=== PATIENT | male | born 1940 | race Two or more races ===

== ENCOUNTER 2017-11-04 10:37 | Outpatient (CLI) | payer MEDICARE, MEDICAID ==
[~2017-11-04] VITALS: Ht 172.7 cm; Wt 75.3 kg
[2017-11-04 10:48] VITALS: BP 133/59
[2017-11-04] MEDS ORDERED: no medication (10:51)
--- NOTE | 2017-11-04 16:35 | GI Initial Consult Note ---
History of Present Illness General Date patient seen: Nov 04, 2017 Time patient seen: 16:32 Referring physician: FATOU Reason for Consultation: SCREENING COLONOSCOPY Present Illness HPI 77 year old male referred by Dr. Washington presents today for routine screening colonoscopy. Has no associated GI symptoms. Denies any unintentional weight loss or changes in dietary habits. No signs of abuse or neglect. Patient is not fall risk. Home Meds Reported Medications [no medication ] No Conflict Check 11/04/17 Med list reviewed/reconciled: Yes Allergies: Coded Allergies: No Known Allergies (Unverified , 07/07/13) Patient History History Provided By: Patient, Medical Record [facility] Narrative [place] Past Surgical History: Cholecystectomy Pertinent Family History: none Social History: Denies: smoking, alcohol use, drug use, other Review of Systems All Other Systems: negative except mentioned in HPI Physical Exam Vital Signs Date Time Temp Pulse Resp B/P (MAP) Pulse Ox O2 Delivery O2 Flow Rate FiO2 11/04/17 10:48 97.6 50 16 133/59 97 97.6 Sp02 EP Interpretation: reviewed, normal General Appearance: well appearing, no apparent distress, alert Head: normocephalic EENT: PERRL/EOMI, normal ENT inspection Neck: supple Respiratory: normal breath sounds, no respiratory distress Cardiovascular: normal rate Gastrointestinal: normal inspection, non tender, soft, normal bowel sounds, non -distended Rectal: deferred Genitourinary: deferred Musculoskeletal: normal inspection, back normal Neurologic: normal inspection, alert, oriented x3, responsive Psychiatric: normal inspection, judgement/insight normal, memory normal Skin: normal inspection, normal color, no rash, warm/dry, palpation normal, well hydrated Lymphatic: normal inspection, no adenopathy GI: Plan Problems: (1) Hx of cholecystectomy (2) Colonoscopy planned Plan EGD/colonoscopy scheduled 11/10/17. - CLD & (Nulytely/Suprep/Movi-Prep) prep instructions given and acknowledged by patient. - NPO @ ID day prior procedure explained. Seen with Dr. John. Thank you for this patient referral. Sue Galindo N.P. Nov 04, 2017 16:35
== END 2017-11-04 11:12 | disposition home or self-care (01) ==
LOC: PAN 10:37
DX: Z12.11 Encounter for screening for malignant neoplasm of colon (principal); Z90.49 Acquired absence of other specified parts of digestive tract
CPT/HCPCS: 99201

== ENCOUNTER 2017-11-12 07:06 | Day surgery (SDC) | payer MEDICARE, MEDICAID ==
[~2017-11-12] VITALS: Ht 170.2 cm; Wt 70.0 kg
[2017-11-12] VITALS (9 sets, daily range): BP systolic 120–141; BP diastolic 53–73
--- NOTE | 2017-11-12 06:53 | Anethesia Preoperative Eval ---
Anesthesia Pre-op PMH/ROS General Date of Evaluation: Nov 12, 2017 Time of Evaluation: 06:51 Anesthesiologist: alec ASA Score: ASA 2 Mallampati Score Class I : Soft palate, uvula, fauces, pillars visible Class II: Soft palate, uvula, fauces visible Class III: Soft palate, base of uvula visible Class IV: Only hard plate visible Mallampati Classification: Class II Surgeon: dianne Diagnosis: abdominal pain Surgical Procedure: egd/colonoscopy Anesthesia History: none Social History: smoking - nonsmoker Family History: no anesthesia problems Allergies: Coded Allergies: No Known Allergies (Unverified , 07/07/13) Medications: see eMAR Past Medical History PSxH Narrative: cholecystectomy Anesthesia Pre-op Phys. Exam Physician Exam Constitutional: NAD Neurologic: CN 2-12 intact Cardiovascular: RRR Respiratory: CTA Gastrointestinal: S/NT/ND Airway Exam Mallampati Score: Class II MO: full Neck: supple TMD: 2fb ROM: full Teeth: intact Anesthesia Pre-op A/P Risk Assessment & Plan Assessment: asa2 Plan: mac Status Change Before Surgery: No Pre-Antibiotics Drug: BABAK Garcia Nov 12, 2017 06:53
[~2017-11-12 07:06] MED LIST: Atropine Inj 1mg/10ml Syr IV PRN; DiphenhydrAMINE 50mg/ml Inj IVP PRN; Midazolam 2mg/2ml Inj IVP PRN; fentaNYL 100 mcg/2 mL IV PRN; no medication
[2017-11-12] MEDS ORDERED: NKM (07:45)
--- NOTE | 2017-11-12 09:22 | Short Stay Surgery H&P ---
History of Present Illness History of Present Illness Chief Complaint see recent office note HPI Deysi Fong is a 77 year old male who was admitted on for Abdominal Pain Patient History Allergies: Coded Allergies: No Known Allergies (Unverified , 07/07/13) Medication History Scheduled No Known Medications* (NKM - No Known Medications*), 0 ., (Reported) Miscellaneous Medications [no medication ], (Reported) Physical Exam Vital Signs Last Vital Signs Date Time Temp Pulse Resp B/P (MAP) Pulse Ox O2 Delivery O2 Flow Rate FiO2 11/12/17 07:46 97.2 56 20 129/67 97 Room Air 97.2 Plan Attestation Are the patient's medical conditions optimized for surgery? SAMIRA ROBERTO Nov 12, 2017 09:22
--- NOTE | 2017-11-12 09:22 | Pre-Procedure Note/Attestation ---
Pre-Procedure Note/Attestation Complete Prior to Procedure Planned Procedure: not applicable Procedure Narrative: esophagogastroduodenoscopy and colonoscopy Indications for Procedure Pre-Operative Diagnosis: screening colon, GERD Attestation I attest that I discussed the nature of the procedure; its benefits; risks and complications; and alternatives (and the risks and benefits of such alternatives ), prior to the procedure, with the patient (or the patient's legal pharmaceutical service representative). I attest that, if there was a reasonable possibility of needing a blood transfusion, the patient (or the patient's legal pharmaceutical service representative) was given the [facility] standardized written summary, pursuant to the Benito Boody Blood Safety Act ([place] Health and Safety Code # 1645, as amended). I attest that I re-evaluated the patient just prior to the surgery and that there has been no change in the patient's H&P, except as documented below: SAMIRA ROBERTO Nov 12, 2017 09:21
[2017-11-12] MEDS ORDERED: Lidocaine 1% MPF 10mg/ml 5ml ONE (09:30)
[2017-11-12] MEDS ORDERED: Propofol 200mg/20ml IV ONE (09:30)
--- NOTE | 2017-11-12 10:05 | Endoscopy Procedure Note ---
Endoscopy Procedure Note General Indication for Procedure: screening colon, GERD Procedures Performed: EGD, colonoscopy Operative Findings/Diagnosis: one polyp, gastritis Specimen: yes Pt Tolerated Procedure Well: Yes Estimated Blood Loss: none Anesthesia Anesthesiologist: alec Anesthesia: MAC Inserted Devices Implant(s) used?: No Quality Quality of Bowel Preparation: Excellent Did scope reach the cecum?: Yes Was there any complications?: No GI Core Measures 50 yrs or older w/o bx or poly: No 10yrs. F/U not recommended: Yes If not recommended, why?: Above average risk 10 yrs. F/U needed: Yes 18 years or older w/prev. colo: Yes <3yrs. since last colonoscopy: No SAMIRA ROBERTO Nov 12, 2017 10:05
--- NOTE | 2017-11-12 12:15 | Procedure Note ---
DATE OF PROCEDURE: 11/12/2017 SURGEON: Luis John M.D. ANESTHESIOLOGIST: Dr. Dickey. PROCEDURE: Upper endoscopy with biopsy and colonoscopy. ANESTHESIA: Per Dr. Dickey. INSTRUMENT: Olympus adult flexible upper endoscope and colonoscope. INDICATION: 1. Screening colonoscopy evaluation. 2. Chronic GERD. The procedure, risks, benefits, and possible consequences, including hemorrhage, aspiration, perforation and infection, and alternative treatments, were explained to the patient/legal guardian by Dr. Luis John and the patient/legal guardian understood and accepted these risks. DESCRIPTION OF PROCEDURE: After informed consent was obtained and the patient was adequately sedated, Olympus upper endoscope was advanced from the mouth to the second portion of duodenum and retroflexion was performed in the stomach. The patient had evidence of diffuse gastritis. Random biopsy from antrum and body was obtained to rule out H. pylori infection. The rest of the upper endoscopic examination was grossly within normal limits. At this time, the upper endoscope was retrieved. The patient was turned over for colonoscopy. First, rectal exam was performed which showed positive for internal hemorrhoids. Then, the scope was advanced from the rectum into the cecum documented by appendiceal orifice, ileocecal valve, and upper quadrant palpation. Quality of prep was excellent. The patient had one sessile polyp in the cecum, roughly measured about 6 mm, removed with hot snare polypectomy technique. Unfortunately, the polyp was lost to retrieve. We flushed the scope few times hoping that it was may be stuck in the channel, but unfortunately it seemed that the polyp was lost. The rest of the colonic examination was grossly within normal limits. There was no obvious mass, any other additional polyps, diverticulosis, or any other pathology. Retroflexion of rectum showed evidence of internal hemorrhoids, small, nonbleeding. The patient tolerated the procedure very well without any complication. SUMMARY OF FINDINGS: 1. Gastritis, status post biopsy. 2. One colonic polyp removed, see above for details. 3. Internal hemorrhoids. RECOMMENDATIONS: 1. Follow up biopsies and treat accordingly. 2. We recommend repeat colonoscopy in 5 years. I want to thank, for this kind referral. Luis Weston John DR: Amber JOB#: [id number] CC:
--- NOTE | 2017-11-12 14:42 | Cardiology Report ---
APPROVED REPORT EKG Measurement Heart [id number] Sinus bradycardia Otherwise normal ECG
--- NOTE | 2017-11-12 23:50 | Immediate Post-Op Evaluation ---
Immediate Post-Op Evalulation Immediate Post-Op Evalulation Procedure: egd/colonoscopy/bx Date of Evaluation: Nov 12, 2017 Time of Evaluation: 10:19 IV Fluids: 0.9ns 1100ml Blood Products: none Estimated Blood Loss: negligble Blood Pressure Systolic: 132 Blood Pressure Diastolic: 68 Pulse Rate: 51 Respiratory Rate: 18 O2 Sat by Pulse Oximetry: 99 Temperature (Fahrenheit): 98.4 Pain Score (1-10): 0 Nausea: No Vomiting: No Complications none Patient Status: awake, reacts, patent Hydration Status: adequate Drug: BABAK Garcia Nov 12, 2017 23:50
--- NOTE | 2017-11-12 23:51 | 48 Hour Post Anesthesia Eval ---
Post Anesthesia Evaluation Procedure: egd/colonoscopy/bx Date of Evaluation: Nov 12, 2017 Time of Evaluation: 10:21 Blood Pressure Systolic: 121 0: 70 Pulse Rate: 55 Respiratory Rate: 18 Temperature (Fahrenheit): 98.4 O2 Sat by Pulse Oximetry: 99 Airway: patent Nausea: No Vomiting: No Pain Intensity: 0 Hydration Status: adequate Cardiopulmonary Status: stable Mental Status/LOC: patient returned to baseline Post-Anesthesia Complications: none Follow-up care needed: N/A BABAK GRULLON Nov 12, 2017 23:51
[2017-11-13 00:30] VITALS: BP 121/70
== END 2017-11-12 11:20 | disposition home or self-care (01) ==
LOC: GAS 07:06
DX: Z12.11 Encounter for screening for malignant neoplasm of colon (principal); K21.9 Gastro-esophageal reflux disease without esophagitis; K29.70 Gastritis, unspecified, without bleeding; B96.81 Helicobacter pylori [H. pylori] as the cause of diseases classified elsewhere; K63.5 Polyp of colon; K64.8 Other hemorrhoids; R00.1 Bradycardia, unspecified; Z90.49 Acquired absence of other specified parts of digestive tract
CPT/HCPCS: 43239; 45384; 93005; J2704; 94003; 94150